=== PATIENT | female | born 1990 | race American Indian/Alaskan Native ===

== ENCOUNTER 2018-06-24 08:20 | Day surgery (SDC) | payer OTHER ==
[2018-06-24 08:36] LABS: Specific Gravity >= 1.030 (1.005-1.030)
[2018-06-24] MEDS ORDERED: CEFAZOLIN 1GM (PREMIX IV) 1 GM/50 ML BAG ONE (08:39)
[2018-06-24] MEDS ORDERED: Ringers Lactate 1,000 ML IV ONE ×3 (08:39→08:45)
[2018-06-24] MEDS ORDERED: SCOPOLAMINE HYDROBROMIDE PATCH TD ONE (08:42)
[2018-06-24] MEDS ORDERED: CEFAZOLIN SODIUM 1 GM/VIAL ONE (08:44)
[2018-06-24] MEDS ORDERED: GENTAMICIN SULF 80 MG/2ML INJ ONE (08:44)
[2018-06-24] MEDS ORDERED: NS 0.9% VIAL 20 ML ONE (08:44)
[2018-06-24] MEDS ORDERED: FENTANYL CITR 100 MCG/2 ML ONE ×2 (08:45→13:01)
[2018-06-24] MEDS ORDERED: MIDAZOLAM HCL 2 MG/2 ML INJ ONE (08:45)
[2018-06-24] MEDS ORDERED: BACITRACIN 50000 UNIT VIAL ONE (08:45)
[2018-06-24] MEDS ORDERED: LIDOCAINE 1% MPF 5 ML VIAL ONE (08:45)
[2018-06-24] MEDS ORDERED: DEXAMETHASONE 10 MG/ML VIAL ONE (08:45)
[2018-06-24] MEDS ORDERED: Mastisol Adhesive Liq ONE (08:45)
[2018-06-24] MEDS ORDERED: PROPOFOL 200 MG/20 ML VIAL IV ONE (08:45)
[2018-06-24] MEDS ORDERED: NS 0.9% VIAL 10 ML ONE (08:46)
[2018-06-24] MEDS ORDERED: ONDANSETRON 4 MG/2 ML VIAL ONE ×2 (08:46→12:47)
[2018-06-24] MEDS ORDERED: VECURONIUM 10 MG/VIAL IV ONE (08:46)
[2018-06-24] MEDS ORDERED: FENTANYL CITR 250 MCG/5 ML ONE (10:41)
[2018-06-24] MEDS ORDERED: GLYCOPYRROLATE 0.2 MG/ML SYR ONE (12:47)
[2018-06-24] MEDS ORDERED: KETOROLAC 30 MG/ML INJ ONE (12:47)
[2018-06-24] MEDS ORDERED: NEOSTIGMINE 1 MG/ML -5 ML SYRINGE ONE (12:48)
[2018-06-24] MEDS ORDERED: MORPHINE 10 MG/ML VIAL ONE (14:06)
[2018-06-24] MEDS: HYDROMORPHONE HCL 2 MG/ML inj ONE ×3 (14:40→15:00)
[2018-06-24] MEDS ORDERED: HYDROCODONE/APAP 10/325 TAB ONE (16:08)
[2018-06-24] MEDS ORDERED: DIPHENHYDRAMINE 50 MG/ML VIAL ONE (16:32)
--- NOTE | 2018-06-25 01:34 | OP ---
Surgeon: Yeison Vargas MD Social Media Manager: Mehrdad. Preoperative Diagnosis: Breast descent. Postoperative Diagnosis: Breast descent. Procedure Performed: Breast lift. Anesthesia: General. Procedure In Detail: After satisfactory induction of general anesthesia, the chest was prepped with DuraPrep and dry sterile drapes were applied in the usual manner. A 45 template was used to outline the right and left areolae. Then, transverse and curvilinear inferior incisions were made. De-epith elialization was performed with EpiCut and dermabrader. Then, a transverse incision was made. The f lap was thinned to 1.2 cm. Flap elevation continued towards the sternum, clavicle, and anterior axil damian line. This was done on both sides simultaneously. After this was done, then the patient had th e inferior incision made half [place] was performed in the cone after tissue was resected. Conization was performed with 2-0 PDS suture. Straps were elevated at 12 o'clock, 1:30 and 3 o'cloc k positions. The right breast mirror was done on the left. Straps were then woven in and out of the pectoralis major muscle, back to the base of the cone, back to the muscle and tied eventually to the base of the cone, to themselves with 2-0 PDS. The 3 o'clock strap was sewn over the sternum at 3 o' clock position with 2-0 Ethibond. The left side was done in an identical manner. The patient's woun ds were carefully stapled shut. Site for new nipple-areolar complex was marked out. The patient ___ again. Dog ear was resected laterally. The 10 SONDRA was brought out axillary and the wound was closed with 3-0 Vicryl subcu, 3-0 PDS running subcuticular and tied in the vertical meridian of the breast. Then, the patient was sat up. Site for new nipple-areolar complex was marked out. Tissue w as cored out, nipple was delivered, sewn with interrupted 4-0 PDS followed by 4-0 PDS running subcuti cular. Dressings consisted of tincture of benzoin, Steri-Strips, 5 x 5's, fluffs and Karlos wrap. The patient tolerated the procedure well, returned to Recovery. The amount removed from the right breast is 72 g, left is 68 g. OSMAR/MEHDI Voice ID: [id number] Report ID: [id number]
== END 2018-06-24 17:29 | disposition home or self-care (01) ==
LOC: OR 08:20
PROVIDERS: ATTEND Specialist
PROC: 0H0V0ZZ Alteration of Bilateral Breast, Open Approach (ICD-10-PCS; principal; 2018-06-24 09:00)
DX: N64.81 Ptosis of breast (principal); K90.0 Celiac disease
CPT/HCPCS: 81025; 88305; J0690; J1100; J1170; J1580; J2250; J2405; J2704; J2710; J3010